=== PATIENT | male | born 1980 | race Caucasian/White ===

== ENCOUNTER 2018-04-14 09:09 | Emergency (ER) | payer SELFPAY ==
[~2018-04-14] VITALS: Ht 182.9 cm; Wt 81.7 kg
[2018-04-14] MEDS ORDERED: AMPICILLIN/SULBACTAM 3 GM in SODIUM CHLORIDE 0.9% 100 ML IV ONE (11:01)
[2018-04-14] MEDS ORDERED: HYDROmorphone 1 MG/ML, 1ML IVPush PRN (11:30)
[2018-04-14] MEDS ORDERED: SODIUM CHLORIDE 0.9% 1,000ML IVBOLUS ONE (11:30)
[2018-04-14] MEDS ORDERED: DEXAMETHASONE 4 MG/ML, 1ML IVPush ONE (11:30)
[2018-04-14] MEDS ORDERED: ONDANSETRON 2MG/ML, 2ML IVPush ONE (11:30)
[2018-04-14 11:46] LABS: BASOPHILS # (AUTO) 0.03 x10^3/uL (0-0.1); BASOPHILS % (AUTO) 0 % (0-1); EOSINOPHILS # (AUTO) 0.09 x10^3/uL (0-0.4); EOSINOPHILS % (AUTO) 1 % (1-7); LYMPHOCYTES # (AUTO) 1.18 x10^3/uL (1-3.4); LYMPHOCYTES % (AUTO) 12 % (22-44); MD NO; MEAN CORPUSCULAR HEMOGLOBIN 29.2 pg (27.5-34.5); MEAN CORPUSCULAR HGB CONC 34.2 g/dL (33.2-36.2); MEAN CORPUSCULAR VOLUME 85.2 fL (81-97); MEAN PLATELET VOLUME 8.5 fL (7.4-10.4); MONOCYTES # (AUTO) 0.93 x10^3/uL (0.2-0.8); MONOCYTES % (AUTO) 9 % (2-9); NEUTROPHILS # (AUTO) 7.58 x10^3/uL (1.8-6.8); NEUTROPHILS % (AUTO) 77 % (42-75); PLATELET COUNT 269 x10^3/uL (130-400); RED BLOOD COUNT 4.35 x10^6/uL (4.38-5.82); RED CELL DISTRIBUTION WIDTH 12.9 % (9.4-14.8)
[2018-04-14 11:55] LABS: ALBUMIN 3.4 g/dL (3.4-5.0); ANION GAP 7 mmol/L (5-15); CALCIUM 8.4 mg/dL (8.5-10.1); CHLORIDE 103 mmol/L (98-107); CREATININE 0.85 mg/dL (0.7-1.3)
[2018-04-14] MEDS ORDERED: ONDANSETRON 2MG/ML, 2ML ONE (11:56)
[2018-04-14] MEDS ORDERED: HYDROmorphone 2 MG/ML, 1ML ONE (11:56)
[2018-04-14] MEDS ORDERED: DEXAMETHASONE 4 MG/ML, 5ML ONE (11:56)
[2018-04-14] MEDS ORDERED: OMNIPAQUE 350 MG/ML, 100ML BOTTLE ONE (12:16)
[2018-04-14 12:22] VITALS: BP 127/82
== END 2018-04-14 14:21 | disposition home or self-care (01) ==
LOC: ED 10:27
DX: J02.0 Streptococcal pharyngitis (principal)
CPT/HCPCS: 36415; 70491; 80048; 82040; 83605; 85025; 86308; 87040; 96365; 96375; 99285; J0295; J1100; J1170; J2405; J7030; Q9967